=== PATIENT | female | born 1965 | race African-American/Black ===

== ENCOUNTER 2021-02-21 16:07 | Emergency (ER) | payer OTHER, MEDICAID ==
[~2021-02-21] VITALS: Ht 162.6 cm; Wt 81.0 kg
[2021-02-21] MEDS ORDERED: ASPIRIN 325MG EC TABLET PO ONE (18:30)
[2021-02-21 19:08] LABS: CHLORIDE 87 mEq/L (98-107)
[2021-02-21 19:18] LABS: BASOPHILS % 1.2 % (0.0-2.0); HEMATOCRIT. 50.1 % (36.0-48.0); HEMOGLOBIN. 17.5 g/dL (12.0-16.0); LYMPHOCYTES % 23.8 % (20.0-50.0); MEAN CORPUSCULAR HEMOGLOBIN 28.7 pg (28.0-32.0); MEAN CORPUSCULAR VOLUME 82.2 fL (81.0-99.0); MEAN PLATELET VOLUME 9.8 fl (7.4-10.4); MONOCYTES % 8.4 % (2.0-8.0); NEUTROPHILS % 63.6 % (40.0-76.0); PLATELET 151 x1000/uL (130-400); RED CELL DISTRIBUTION WIDTH 13.9 % (11.6-14.6)
[2021-02-21] MEDS ORDERED: MORPHINE SULFATE 4 MG/ML CPJ (NOT FOR IM USE) IV STA (19:21)
[2021-02-21] MEDS ORDERED: ONDANSETRON HCL 4MG/2ML INJ IV STA (19:21)
[2021-02-21] MEDS ORDERED: POTASSIUM CHLORIDE INJ 40 MEQ in DEXT 5% WATER 250 ML IV NR (20:15)
[2021-02-22] MEDS ORDERED: ONDANSETRON HCL 4MG/2ML INJ IV STA (01:51)
[2021-02-22] MEDS ORDERED: MORPHINE SULFATE 4 MG/ML CPJ (NOT FOR IM USE) IV STA (01:51)
[2021-02-22 02:17] VITALS: BP 146/86
== END 2021-02-22 02:17 ==
LOC: ER 19:07
DX: R07.89 Other chest pain (principal); R00.0 Tachycardia, unspecified; E87.6 Hypokalemia; E11.9 Type 2 diabetes mellitus without complications; I10 Essential (primary) hypertension; G35 Multiple sclerosis; J45.909 Unspecified asthma, uncomplicated; Z82.49 Family history of ischemic heart disease and other diseases of the circulatory system; Z98.890 Other specified postprocedural states; Z87.891 Personal history of nicotine dependence
CPT/HCPCS: 36415; 71045; 80053; 82962; 83735; 83880; 84484; 85025; 85379; 93005; 96365; 96375; 96376; 99285; J2270; J2405; J3480; J7060

== ENCOUNTER 2022-07-15 10:43 | Emergency (ER) | payer OTHER, MEDICAID ==
[~2022-07-15] VITALS: Ht 162.6 cm; Wt 80.0 kg
[2022-07-15] MEDS ORDERED: HYDROCODONE/ACETAMINOPHEN 5/325MG TABLET PO STA (11:30)
[2022-07-15 11:36] VITALS: BP 190/111
[2022-07-15] MEDS ORDERED: TRAM50TA3 MT (13:17)
[2022-07-15] MEDS ORDERED: NAPR-681 PO (13:17)
== END 2022-07-15 14:11 | disposition home or self-care (01) ==
LOC: ER 10:59
DX: S20.212A Contusion of left front wall of thorax, initial encounter (principal); S00.93XA Contusion of unspecified part of head, initial encounter; W01.0XXA Fall on same level from slipping, tripping and stumbling without subsequent striking against object, initial encounter; Y93.89 Activity, other specified; Y92.89 Other specified places as the place of occurrence of the external cause; Y99.8 Other external cause status; M25.512 Pain in left shoulder; M79.602 Pain in left arm; E11.9 Type 2 diabetes mellitus without complications; I10 Essential (primary) hypertension; Z98.890 Other specified postprocedural states
CPT/HCPCS: 71101; 73030; 73060; 99284

== ENCOUNTER 2022-08-31 13:45 | Emergency (ER) | payer OTHER, MEDICAID ==
[~2022-08-31] VITALS: Ht 157.5 cm; Wt 82.0 kg
[~2022-08-31 13:45] MED LIST: NAPR-681 PO; TRAM50TA3 MT
[2022-08-31 13:54] VITALS: BP 177/81
== END 2022-08-31 18:55 | disposition left against medical advice (07) ==
LOC: ER 13:45
DX: Z53.21 Procedure and treatment not carried out due to patient leaving prior to being seen by health care provider (principal)

== ENCOUNTER 2022-09-18 15:47 | Emergency (ER) | payer OTHER, MEDICAID ==
[~2022-09-18] VITALS: Ht 162.6 cm; Wt 114.0 kg
[2022-09-18 18:59] LABS: BASOPHILS % 0.5 % (0.0-2.0); EOSINOPHILS % 3.5 % (0.0-5.0); HEMATOCRIT. 41.2 % (36.0-48.0); HEMOGLOBIN. 14.2 g/dL (12.0-16.0); LYMPHOCYTES % 30.8 % (20.0-50.0); MEAN CORPUSCULAR HEMOGLOBIN 29.6 pg (28.0-32.0); MEAN CORPUSCULAR VOLUME 85.7 fL (81.0-99.0); MEAN PLATELET VOLUME 8.8 fl (7.4-10.4); MONOCYTES % 5.3 % (2.0-8.0); NEUTROPHILS % 59.9 % (40.0-76.0); PLATELET 179 x1000/uL (130-400); RED CELL DISTRIBUTION WIDTH 15.4 % (11.6-14.6)
[2022-09-18 19:07] LABS: CHLORIDE 104 mEq/L (98-107); PROTHROMBIN TIME 10.9 sec (9.6-11.0)
[2022-09-18] MEDS ORDERED: LABETALOL 5MG/ML SYR 20 MG/4 ML SYRINGE IV ONE (23:00)
[2022-09-18] MEDS ORDERED: KETOROLAC 30MG/ML VIAL IV ONE (23:15)
[2022-09-19 00:26] VITALS: BP 165/81
[2022-09-19] MEDS ORDERED: LISI10TA26 MT (01:23)
== END 2022-09-19 02:00 | disposition home or self-care (01) ==
LOC: ER 15:47
DX: R51.9 Headache, unspecified (principal); I10 Essential (primary) hypertension; Z91.14 Patient's other noncompliance with medication regimen; E11.9 Type 2 diabetes mellitus without complications; J45.909 Unspecified asthma, uncomplicated; G35 Multiple sclerosis
CPT/HCPCS: 36415; 70450; 71045; 80053; 84484; 85025; 85610; 93005; 96374; 96375; 99285; J1885; J3490